=== PATIENT | female | born 1960 | race Two or more races ===

== ENCOUNTER → 2016-04-10 | Outpatient (CLI) | payer BC ==
[2016-04-10 11:22] LABS: CHOLESTEROL 233.72 mg/dL (0-200); Direct HDL 68 mg/dL (>40); TRIGLYCERIDES 97 mg/dL (<150)
[2016-04-10 11:35] LABS: DIRECT LDL 123 mg/dL (<100)
== END ==
LOC: OD 09:26
PROVIDERS: ATTEND Family Medicine Geriatric Medicine
DX: E78.5 Hyperlipidemia, unspecified (principal)
CPT/HCPCS: 36415; 80061

== ENCOUNTER → 2017-05-25 | Outpatient (CLI) | payer BC ==
[2017-05-25 10:59] LABS: ABSOLUTE EOSINOPHILS # (AUTO) 0.2 10^3/uL (0.0-0.6); ABSOLUTE LYMPHOCYTES (AUTO) 1.5 10^3/uL (0.5-4.7); ABSOLUTE MONOCYTES (AUTO) 0.4 10^3/uL (0.1-1.4); ABSOLUTE NEUT (AUTO) 2.2 10^3/uL (1.7-8.2); BASOPHILS % (AUTO) 0.7 % (0-2); EOSINOPHILS % (AUTO) 4.5 % (0-6); HEMATOCRIT 41.5 % (36.0-47.0); HEMOGLOBIN 13.7 g/dL (12.0-15.5); LYMPHOCYTES % (AUTO) 34.2 % (13-45); MEAN CORPUSCULAR HEMOGLOBIN 28.2 pg (27.0-33.4); MEAN CORPUSCULAR HGB CONC 33.1 g/dL (32.0-36.0); MEAN CORPUSCULAR VOLUME 85 fl (80-97); MONOCYTES % (AUTO) 9.6 % (3-13); PLATELET COUNT 234 10^3/uL (150-450); RED BLOOD COUNT 4.86 10^6/uL (3.72-5.28); RED CELL DISTRIBUTION WIDTH 13.1 % (11.5-14.0); TOTAL CELLS COUNTED % (AUTO) 100 %; WHITE BLOOD COUNT 4.3 10^3/uL (4.0-10.5)
[2017-05-25 11:22] LABS: ALANINE AMINOTRANSFERASE 29 U/L (9-52); ALBUMIN 4.6 g/dL (3.5-5.0); ALKALINE PHOSPHATASE 81 U/L (38-126); ANION GAP 12 (5-19); ASPARTATE AMINO TRANSFERASE 27 U/L (14-36); BILIRUBIN,DIRECT 0.3 mg/dL (0.0-0.4); BILIRUBIN,TOTAL 0.5 mg/dL (0.2-1.3); BLOOD UREA NITROGEN 26 mg/dL (7-20); CALCIUM 9.8 mg/dL (8.4-10.2); CARBON DIOXIDE 31 mmol/L (22-30); CHLORIDE 100 mmol/L (98-107); CHOLESTEROL 236.71 mg/dL (0-200); GLUCOSE 115 mg/dL (75-110); POTASSIUM 4.5 mmol/L (3.6-5.0); SODIUM 143.2 mmol/L (137-145); TOTAL PROTEIN 7.4 g/dL (6.3-8.2); TRIGLYCERIDES 82 mg/dL (<150)
[2017-05-25 11:33] LABS: DIRECT LDL 131 mg/dL (<100)
== END ==
LOC: OD 10:09
PROVIDERS: ATTEND Family Medicine Geriatric Medicine
DX: E78.5 Hyperlipidemia, unspecified (principal); I10 Essential (primary) hypertension; I25.10 Atherosclerotic heart disease of native coronary artery without angina pectoris; E66.9 Obesity, unspecified; E55.9 Vitamin D deficiency, unspecified; Z68.36 Body mass index [BMI] 36.0-36.9, adult; Z79.899 Other long term (current) drug therapy
CPT/HCPCS: 36415; 80053; 80061; 82652; 84443; 85025

== ENCOUNTER → 2017-05-30 | Outpatient (CLI) | payer SELFPAY | LOC: OD 09:06 | PROVIDERS: ATTEND Family Medicine Geriatric Medicine | DX: R73.9 Hyperglycemia, unspecified (principal) | CPT/HCPCS: 36415; 82947; 82950 ==

== ENCOUNTER 2017-07-04 21:55 | Emergency (ER) | payer SELFPAY ==
[2017-07-04 22:01] VITALS: BP 145/91
[2017-07-05] MEDS ORDERED: CETIRIZINE 10 MG TABLET PO ONE (02:04)
[2017-07-05] MEDS ORDERED: POLYMYXIN B SULFATE/TMP OPH SOLN (10 ML/ER DISP) OU PRN (02:04)
--- NOTE | 2017-07-05 03:01 | ER Document Report ---
ED General - General Chief Complaint: Eye Problem Stated Complaint: EYE ISSUE Time Seen by Provider: 07/05/17 01:14 TRAVEL OUTSIDE OF THE [place] IN LAST 30 DAYS: No - HPI Patient complains to provider of: Bilateral eye redness and itching Notes: Patient coming in for 24 hour history of bilateral eye redness and itching. N no recent sick contacts no recent travel the patient does not wear glasses or contacts. No fevers no chills states denies watering does feel like there is something in the right eye. Patient otherwise resting comfortably denies any trauma denies taking any medication for her symptoms - Related Data Allergies/Adverse Reactions: No Known Allergies Allergy (Verified 08/10/13 17:06) Past Medical History - Social History Smoking Status: Unknown if Ever Smoked Family History: CAD Patient has suicidal ideation: No Patient has homicidal ideation: No - Past Medical History Cardiac Medical History: Reports: Hx Hypercholesterolemia, Hx Hypertension Pulmonary Medical History: Denies: Hx Tuberculosis Renal/ Medical History: Denies: Hx Peritoneal Dialysis Past Surgical History: Denies: Hx Pacemaker - Immunizations Hx Diphtheria, Pertussis, Tetanus Vaccination: Yes Review of Systems - Review of Systems Constitutional: No symptoms reported EENT: Eye discharge, Tearing Cardiovascular: No symptoms reported Respiratory: No symptoms reported Gastrointestinal: No symptoms reported Genitourinary: No symptoms reported Female Genitourinary: No symptoms reported Musculoskeletal: No symptoms reported Skin: No symptoms reported Hematologic/Lymphatic: No symptoms reported Neurological/Psychological: No symptoms reported -: Yes All other systems reviewed and negative Physical Exam - Vital signs Vitals: Temp Pulse Resp BP Pulse Ox 98.1 F 82 18 145/91 H 96 07/04/17 22:00 07/04/17 22:00 07/04/17 22:00 07/04/17 22:00 07/04/17 22:00 Interpretation: Normal - General General appearance: Appears well, Alert - HEENT Head: Normocephalic, Atraumatic Eyes: Normal Conjunctiva: Injected, Purulent discharge - Scant amount bilaterally Cornea: Normal Extraocular movements intact: Yes Eyelashes: Normal Pupils: PERRL - Patient has bilateral pterygiums Anterior chamber: Normal - Respiratory Respiratory status: No respiratory distress Chest status: Nontender Breath sounds: Normal Chest palpation: Normal - Cardiovascular Rhythm: Regular Heart sounds: Normal auscultation Murmur: No - Abdominal Inspection: Normal Distension: No distension Bowel sounds: Normal Tenderness: Nontender Organomegaly: No organomegaly - Back Back: Normal, Nontender - Extremities General upper extremity: Normal inspection, Nontender, Normal color, Normal ROM , Normal temperature General lower extremity: Normal inspection, Nontender, Normal color, Normal ROM , Normal temperature, Normal weight bearing. No: Joni's sign - Neurological Neuro grossly intact: Yes Cognition: Normal Orientation: AAOx4 [place] Coma Scale Eye Opening: Spontaneous [place] Coma Scale Verbal: Oriented [place] Coma Scale Motor: Obeys Commands [place] Coma Scale Total: 15 Speech: Normal Motor strength normal: LUE, RUE, LLE, RLE Sensory: Normal - Psychological Associated symptoms: Normal affect, Normal mood - Skin Skin Temperature: Warm Skin Moisture: Dry Skin Color: Normal Course - Re-evaluation Re-evalutation: 07/05/17 04:49 Evaluation consistent with conjunctivitis. Patient was encouraged to use the drops provided start the patient on antihistamines. Patient was discharged home - Vital Signs Vital signs: Temp Pulse Resp BP Pulse Ox 98.1 F 82 18 145/91 H 96 07/04/17 22:00 07/04/17 22:00 07/04/17 22:00 07/04/17 22:00 07/04/17 22:00 Discharge - Discharge Clinical Impression: Conjunctivitis Qualifiers: Conjunctivitis type: unspecified Laterality: bilateral Qualified Code(s): H10.9 - Unspecified conjunctivitis Instructions: Eyedrop Use ([facility]), Conjunctivitis, Allergic, Conjunctivitis ([facility]) Additional Instructions: Take medication as prescribed. Also recommend taking antihistamine medication he may use Zyrtec as prescribed. Return to ER symptoms worsen. Please use the drops of a gave you here in ER 1-2 drops in each eye 3 times a day for the next 7 days. Prescriptions: Cetirizine HCl [Zyrtec] 10 mg PO DAILY #30 tablet Referrals: TEDDY HARLEY MD [Primary Care Provider] - Follow up as needed
== END 2017-07-05 02:53 | disposition home or self-care (01) ==
LOC: ER 21:55
DX: H10.9 Unspecified conjunctivitis (principal); H57.8 Other specified disorders of eye and adnexa; E78.00 Pure hypercholesterolemia, unspecified; I10 Essential (primary) hypertension
CPT/HCPCS: 99283; J3490

== ENCOUNTER 2018-01-19 09:25 | Emergency (ER) | payer SELFPAY ==
[2018-01-19] MEDS ORDERED: HYDROCODONE/ACETAMINOPHEN 5-325 MG TABLET PO ONE (09:53)
--- NOTE | 2018-01-19 09:55 | ER Document Report ---
ED Medical Screen (RME) - General Chief Complaint: Flank Pain Stated Complaint: UPPER ABDOMINAL PAIN Time Seen by Provider: 01/19/18 09:53 Mode of Arrival: Ambulatory Information source: Patient, Relative TRAVEL OUTSIDE OF THE [place] IN LAST 30 DAYS: No - HPI Patient complains to provider of: Abd pain Onset: Just prior to arrival - pt with acute onset of L-sided abd pain earlier this am with radiation to L flank - Related Data Allergies/Adverse Reactions: No Known Allergies Allergy (Verified 01/19/18 09:30) Past Medical History - Past Medical History Cardiac Medical History: Reports: Hx Hypercholesterolemia, Hx Hypertension Pulmonary Medical History: Denies: Hx Tuberculosis Renal/ Medical History: Denies: Hx Peritoneal Dialysis Past Surgical History: Denies: Hx Pacemaker - Immunizations Hx Diphtheria, Pertussis, Tetanus Vaccination: Yes Physical Exam - Vital signs Vitals: Temp Pulse Resp BP Pulse Ox 98.4 F 82 20 152/93 H 99 01/19/18 09:28 01/19/18 09:28 01/19/18 09:28 01/19/18 09:28 01/19/18 09:28 Course - Vital Signs Vital signs: Temp Pulse Resp BP Pulse Ox 98.4 F 82 20 152/93 H 99 01/19/18 09:28 01/19/18 09:28 01/19/18 09:28 01/19/18 09:28 01/19/18 09:28 Doctor's Discharge - Discharge Referrals: TEDDY HRALEY MD [Primary Care Provider] - Follow up as needed
--- NOTE | 2018-01-19 10:54 | RADIOLOGY REPORT (SQ) ---
EXAM DESCRIPTION: ACUTE ABDOMEN SERIES COMPLETED DATE/TIME: 01/19/2018 10:43 am REASON FOR STUDY: abd pain COMPARISON: None. NUMBER OF VIEWS: Three views. TECHNIQUE: Frontal chest, supine abdomen and upright/decubitus abdomen radiographic images acquired. LIMITATIONS: None. FINDINGS: CHEST: Lungs clear of infiltrates. FREE AIR: None. No abnormal gas collections. BOWEL GAS PATTERN: Abundant fecal material from the cecum to the rectum. No obstruction. CALCIFICATIONS: No suspicious calcifications. HARDWARE: None in the abdomen. SOFT TISSUES: No gross mass or suggestion of organomegaly. BONES: No acute fracture. No worrisome bone lesions. OTHER: No other significant finding. IMPRESSION: Fecal retention. TECHNICAL DOCUMENTATION: JOB ID: [id number] [employer]- All Rights Reserved Reading location - IP/workstation name: [email or web address]
[2018-01-19 11:13] LABS: APPEARANCE,URINE CLOUDY; BILIRUBIN,URINE NEGATIVE (NEGATIVE); COLOR,URINE AMBER; GLUCOSE, URINE NEGATIVE (NEGATIVE); KETONES,URINE NEGATIVE (NEGATIVE); LEUKOCYTE ESTERASE,URINE LARGE (NEGATIVE); NITRITE,URINE NEGATIVE (NEGATIVE); PROTEIN,URINE NEGATIVE (NEGATIVE); URINE SPECIFIC GRAVITY 1.023; UROBILINOGEN,URINE NEGATIVE mg/dL (<2.0)
[2018-01-19 11:27] LABS: ABSOLUTE EOSINOPHILS # (AUTO) 0.2 10^3/uL (0.0-0.6); ABSOLUTE LYMPHOCYTES (AUTO) 1.5 10^3/uL (0.5-4.7); ABSOLUTE MONOCYTES (AUTO) 0.4 10^3/uL (0.1-1.4); ABSOLUTE NEUT (AUTO) 2.7 10^3/uL (1.7-8.2); BASOPHILS % (AUTO) 0.6 % (0-2); EOSINOPHILS % (AUTO) 3.1 % (0-6); HEMATOCRIT 38.9 % (36.0-47.0); HEMOGLOBIN 13.1 g/dL (12.0-15.5); LYMPHOCYTES % (AUTO) 31.5 % (13-45); MEAN CORPUSCULAR HEMOGLOBIN 28.7 pg (27.0-33.4); MEAN CORPUSCULAR HGB CONC 33.6 g/dL (32.0-36.0); MEAN CORPUSCULAR VOLUME 85 fl (80-97); MONOCYTES % (AUTO) 9.2 % (3-13); PLATELET COUNT 245 10^3/uL (150-450); RED BLOOD COUNT 4.57 10^6/uL (3.72-5.28); RED CELL DISTRIBUTION WIDTH 13.1 % (11.5-14.0); SEGMENTED NEUTROPHILS % (AUTO) 55.6 % (42-78); TOTAL CELLS COUNTED % (AUTO) 100 %; WHITE BLOOD COUNT 4.8 10^3/uL (4.0-10.5)
[2018-01-19 11:34] LABS: ALANINE AMINOTRANSFERASE 20 U/L (9-52); ALBUMIN 4.5 g/dL (3.5-5.0); ALKALINE PHOSPHATASE 101 U/L (38-126); ANION GAP 11 (5-19); ASPARTATE AMINO TRANSFERASE 26 U/L (14-36); BILIRUBIN,DIRECT 0.4 mg/dL (0.0-0.4); BILIRUBIN,TOTAL 0.5 mg/dL (0.2-1.3); BLOOD UREA NITROGEN 25 mg/dL (7-20); CALCIUM 9.6 mg/dL (8.4-10.2); CARBON DIOXIDE 28 mmol/L (22-30); CHLORIDE 102 mmol/L (98-107); GLUCOSE 122 mg/dL (75-110); POTASSIUM 4.3 mmol/L (3.6-5.0); SODIUM 141.1 mmol/L (137-145); TOTAL PROTEIN 7.6 g/dL (6.3-8.2)
[2018-01-19] MEDS ORDERED: CEFTRIAXONE RTU 1 GM/D5W 50 ML IV ONE (11:35)
--- NOTE | 2018-01-19 11:40 | ER Document Report ---
ED GI/ - General Chief Complaint: Flank Pain Stated Complaint: UPPER ABDOMINAL PAIN Time Seen by Provider: 01/19/18 09:53 Mode of Arrival: Ambulatory Information source: Patient Notes: Patient is a 57-year-old female with past medical history as recorded who presents today with the onset around 8 AM of some left upper abdominal discomfort radiating to her left back. She denies nausea, vomiting, fevers, diarrhea, or dysuria. She denies any radiation to her lower pelvis. Patient on review of systems also states a mild radiation to the anterior chest. Patient recently has had a upper respiratory tract infection with runny nose, congestion, and cough. She denies any phlegm. Patient denies any calf pain, leg swelling, recent trips or travel. Patient supposedly a few years ago had an episode of hematuria and was treated with antibiotics with resolution of the hematuria according to the family with Dr. Damon the primary care physician. TRAVEL OUTSIDE OF THE [place] IN LAST 30 DAYS: No - HPI Patient complains to provider of: Other - See above Onset: Other - See above Timing/Duration: Gradual Quality of pain: Achy Severity at maximum: Moderate Severity in ED: Mild Pain Level: Denies Location: Other - See above Associated symptoms: Other - See above Exacerbated by: Denies Relieved by: Denies Similar symptoms previously: Yes Recently seen / treated by doctor: No - Related Data Allergies/Adverse Reactions: No Known Allergies Allergy (Verified 01/19/18 09:30) Past Medical History - General Information source: Patient, Relative - Social History Smoking Status: Never Smoker Chew tobacco use (# tins/day): No Frequency of alcohol use: None Drug Abuse: None Family History: Reviewed & Not Pertinent, CAD Patient has suicidal ideation: No Patient has homicidal ideation: No - Past Medical History Cardiac Medical History: Reports: Hx Hypercholesterolemia, Hx Hypertension Pulmonary Medical History: Denies: Hx Tuberculosis Renal/ Medical History: Denies: Hx Peritoneal Dialysis Past Surgical History: Denies: Hx Pacemaker - Immunizations Hx Diphtheria, Pertussis, Tetanus Vaccination: Yes Review of Systems - Review of Systems Constitutional: denies: Fever EENT: denies: Eye discharge, Nose discharge Cardiovascular: denies: Palpitations, Dizziness, Lightheaded Respiratory: denies: Short of breath Gastrointestinal: denies: Vomiting Genitourinary: denies: Dysuria Musculoskeletal: denies: Leg swelling Skin: Other - no hives. denies: Rash Neurological/Psychological: Other - no slurred speech -: Yes All other systems reviewed and negative Physical Exam - Vital signs Vitals: Temp Pulse Resp BP Pulse Ox 98.4 F 82 20 152/93 H 99 01/19/18 09:28 01/19/18 09:28 01/19/18 09:28 01/19/18 09:28 01/19/18 09:28 Notes: Reviewed vital signs and nursing note as charted by RN. CONSTITUTIONAL: Alert and oriented and responds appropriately to questions. Well -appearing; well-nourished HEAD: Normocephalic; atraumatic EYES: Sclerae non-icteric ENT: Normal nose; no rhinorrhea; moist mucous membranes; pharynx without lesions noted NECK: Supple without meningismus; non-tender; no cervical lymphadenopathy, no masses CARD: Regular rate and rhythm; no murmurs; symmetric distal pulses RESP: Normal chest excursion without splinting or tachypnea; breath sounds clear and equal bilaterally; no wheezes, no rhonchi, no rales ABD/GI: Normal bowel sounds; non-distended; soft, minimally tender the left upper quadrant with no palpable masses, rebound or guarding. No bruising to the abdomen BACK: The back appears normal and is non-tender to palpation. Minimal left CVA tenderness with no swelling or erythema EXT: Normal ROM in all joints; non-tender to palpation; no edema SKIN: No acute lesions noted NEURO: CN 2-12 intact; 5/5 bilateral upper and lower extremity strength with sensation intact to light touch PSYCH: The patient's mood and manner are appropriate. Grooming and personal hygiene are appropriate. Course - Re-evaluation Re-evalutation: 01/19/18 11:39 Given the above history and physical examination, I will obtain basic labs, liver panel and lipase, renal colic CT scan, urine analysis, and reassess. Given that the patient states some anterior chest discomfort with radiation from the left abdominal region, I will add on a troponin and an EKG with an x- ray of the chest. I have a low pretest probability for ACS, dissection, or PE. 01/19/18 12:19 Urine analysis and other laboratory results as recorded. Rocephin has been given. Urine culture has been sent. 12/15/18 13:19 CT scan of the abdomen and pelvis renal colic protocol as recorded. Patient has a small adenoma and a small right 2 cm adnexal mass. Patient has no tenderness to the right side of the abdomen. I have discussed these findings with the patient and the family. Patient's troponin as recorded. 01/19/18 13:36 EKG shows a heart rate of 74, left axis deviation, no obvious ST elevation or depression, inverted T waves in lead V3. Old EKG from 2016 shows no obvious appreciable change. Patient denies any chest pain at this time. Urine analysis as recorded. Patient did have some mild left CVA tenderness and left abdominal tenderness. I will start the patient on a course of antibiotics with strict return precautions and follow-up with the primary care provider. Urine culture has been sent. - Vital Signs Vital signs: Temp Pulse Resp BP Pulse Ox 98.4 F 82 20 152/93 H 99 01/19/18 09:28 01/19/18 09:28 01/19/18 09:28 01/19/18 09:28 01/19/18 09:28 - Laboratory Result Diagrams: 01/19/18 10:38 01/19/18 10:38 Laboratory results interpreted by me: 01/19/18 01/19/18 10:38 10:38 BUN 25 H Glucose 122 H Urine Blood MODERATE H Ur Leukocyte Esterase LARGE H Discharge - Discharge Clinical Impression: Left sided abdominal pain, Left flank pain, Adenoma of left adrenal gland, Pelvic mass in female Urinary tract infection Qualifiers: Urinary tract infection type: site unspecified Hematuria presence: with hematuria Qualified Code(s): N39.0 - Urinary tract infection, site not specified ; R31.9 - Hematuria, unspecified; R31.9 - Hematuria, unspecified Condition: Good Disposition: HOME, SELF-CARE Additional Instructions: Come back immediately for any increased pain, change in location or quality of pain, fevers, vomiting, return of chest discomfort, any shortness of breath, or any other acute problems. Please take the antibiotics as prescribed. Please make sure that she follow-up with your primary care physician for reassessment of the urine analysis and the urine culture. Please also follow-up on the other incidental findings that we have discussed. Prescriptions: Cefdinir [Omnicef 300 mg Capsule] 1 cap PO BID 10 Days #20 capsule Referrals: TEDDY HARLYE MD [Primary Care Provider] - Follow up as needed
--- NOTE | 2018-01-19 13:14 | RADIOLOGY REPORT (SQ) ---
EXAM DESCRIPTION: CT LTD RENAL STONE PROTOCOL ON COMPLETED DATE/TIME: 01/19/2018 12:57 pm REASON FOR STUDY: flank pain . Left upper quadrant pain. COMPARISON: Abdominal series 01/19/2018. TECHNIQUE: CT scan of the abdomen and pelvis performed without intravenous or oral contrast. Images reviewed with lung, soft tissue, and bone windows. Reconstructed coronal and sagittal MPR images revi ewed. All images stored on PACS. All CT scanners at this facility use dose modulation, iterative reconstruction, and/or weight based d osing when appropriate to reduce radiation dose to as low as reasonably achievable (ALARA). [facility]: Dose Right [facility]: CareDose [facility]: Dose Right [facility]: Teradose 4D [facility]: Smart ADP RADIATION DOSE: CT Rad equipment meets quality standard of care and radiation dose reduction techniq ues were employed. CTDIvol: 23.7 mGy. DLP: 1377 mGy-cm.mGy. LIMITATIONS: None. FINDINGS: Stone CT LOWER CHEST: No consolidation or pleural effusion. NON-CONTRASTED LIVER, SPLEEN, ADRENALS: Evaluation limited by lack of IV contrast. There is a 1.3 cm fat containing nodule at the left adrenal gland, probably representing a small adenoma. Otherwise, no identified significant masses. PANCREAS: No peripancreatic inflammatory changes. GALLBLADDER: No identified stones by CT criteria. No inflammatory changes to suggest cholecystitis. RIGHT KIDNEY AND URETER: Assessment for masses limited by lack of IV contrast. No significant calci fications. No hydronephrosis or hydroureter. LEFT KIDNEY AND URETER: Assessment for masses limited by lack of IV contrast. No significant calcif ications. No hydronephrosis or hydroureter. AORTA AND RETROPERITONEUM: No abdominal aortic aneurysm. No retroperitoneal masses or hemorrhage. BOWEL AND PERITONEAL CAVITY: No dilated bowel loops or inflammatory changes. No free fluid. APPENDIX: Normal. PELVIS, BLADDER, AND ABDOMINAL WALL:The uterus is present. There is a 2.0 cm cystic lesion at the [facility] adnexa. No free fluid. Bladder distended. There is a small fat containing umbilical hernia. BONES: There is mild anterolisthesis of L4 on L5. There is facet arthropathy at L4-L5 with severe sp inal canal stenosis at L4-L5. IMPRESSION: 1. No obstructing ureteral calculus or hydronephrosis. No acute findings on unenhanced CT. 2. Small left adrenal adenoma. 3. 2.0 cm cystic lesion at the right adnexa. This can be better characterized by pelvic ultrasound. 4. Mild anterolisthesis of L4 on L5. Severe spinal canal stenosis at L4-L5. COMMENT: Quality ID # [id number]: Final reports with documentation of one or more dose reduction techniques (e.g., Automated exposure control, adjustment of the mA and/or kV according to patient size, use of iterative reconstruction technique) TECHNICAL DOCUMENTATION: JOB ID: [id number]-[email or web address] 2010 [employer]- All Rights Reserved Reading location - IP/workstation name: [email or web address]
[2018-01-19 14:17] VITALS: BP 133/76
--- NOTE | 2018-01-21 00:41 | EKG REPORT ---
SEVERITY:- BORDERLINE ECG - SINUS RHYTHM LEFT AXIS DEVIATION BORDERLINE T ABNORMALITIES, DIFFUSE LEADS : Confirmed by: Krupa George MD 21-Jan-2018 00:40:09
== END 2018-01-19 14:17 | disposition home or self-care (01) ==
LOC: ER 09:25
DX: N39.0 Urinary tract infection, site not specified (principal); D35.02 Benign neoplasm of left adrenal gland; R19.00 Intra-abdominal and pelvic swelling, mass and lump, unspecified site; R10.12 Left upper quadrant pain; M54.5 Low back pain; I10 Essential (primary) hypertension
CPT/HCPCS: 93005; 99285; 96365; 36415; 87086; 83690; 85025; 80053; 81001; 84484; 74022; 76380; 93010; J0696

== ENCOUNTER → 2018-08-13 | Outpatient (CLI) | payer SELFPAY ==
[2018-08-13 11:13] LABS: ALANINE AMINOTRANSFERASE 25 U/L (9-52); ALBUMIN 4.7 g/dL (3.5-5.0); ALKALINE PHOSPHATASE 93 U/L (38-126); ANION GAP 9 (5-19); ASPARTATE AMINO TRANSFERASE 30 U/L (14-36); BILIRUBIN,DIRECT 0.3 mg/dL (0.0-0.4); BILIRUBIN,TOTAL 0.6 mg/dL (0.2-1.3); BLOOD UREA NITROGEN 17 mg/dL (7-20); CALCIUM 9.8 mg/dL (8.4-10.2); CARBON DIOXIDE 31 mmol/L (22-30); CHLORIDE 100 mmol/L (98-107); CHOLESTEROL 174.61 mg/dL (0-200); GLUCOSE 114 mg/dL (75-110); POTASSIUM 4.5 mmol/L (3.6-5.0); SODIUM 139.8 mmol/L (137-145); TOTAL PROTEIN 7.9 g/dL (6.3-8.2); TRIGLYCERIDES 106 mg/dL (<150)
[2018-08-13 11:25] LABS: DIRECT LDL 87 mg/dL (<100)
== END ==
LOC: OD 10:02
PROVIDERS: ATTEND Internal Medicine
DX: E78.5 Hyperlipidemia, unspecified (principal); E03.9 Hypothyroidism, unspecified; R94.5 Abnormal results of liver function studies; N19 Unspecified kidney failure; E11.9 Type 2 diabetes mellitus without complications
CPT/HCPCS: 36415; 80048; 80061; 80076; 83036; 84443

== ENCOUNTER 2018-12-17 11:05 | Emergency (ER) | payer SELFPAY ==
[2018-12-17] MEDS ORDERED: ASPIRIN 81 MG TABLET, CHEWABLE PO ONE (11:30)
--- NOTE | 2018-12-17 11:32 | ER Document Report ---
ED Medical Screen (RME) - General Chief Complaint: Chest Pain Stated Complaint: DIZZY/CHEST PAIN Time Seen by Provider: 12/17/18 11:25 Primary Care Provider: KYLE DICKEY MD [Primary Care Provider] - Follow up as needed TRAVEL OUTSIDE OF THE [place] IN LAST 30 DAYS: No - HPI Notes: 12/17/18 11:31 58-year-old female to the emergency department with complaints of midsternal chest pain that started about 1020 this morning and lasted about 20 minutes. She states that she was cleaning when the chest pain started. She states that she had associated tingling in her legs as well as diaphoresis and nausea. She did not vomit. She never had a heart attack. She does have high blood pressure, hyperlipidemia, diabetes. Daughter who is with her denies any family history of heart disease. She has not recently been traveling. She does not have any swollen legs. She states that her pain is much better now. She has not taken aspirin this morning. I performed a brief medical screening exam on this patient and determined he needs further management and evaluation by means at ER provider. I placed initial orders to help expedite in his treatment plan today to include lab work and medications. - Related Data Allergies/Adverse Reactions: No Known Allergies Allergy (Verified 01/19/18 09:30) Past Medical History - Past Medical History Cardiac Medical History: Reports: Hx Hypercholesterolemia, Hx Hypertension Pulmonary Medical History: Denies: Hx Tuberculosis Renal/ Medical History: Denies: Hx Peritoneal Dialysis Past Surgical History: Denies: Hx Pacemaker - Immunizations Hx Diphtheria, Pertussis, Tetanus Vaccination: Yes Physical Exam - Vital signs Vitals: Temp Pulse Resp BP Pulse Ox 98.2 F 72 18 165/90 H 98 12/17/18 11:12 12/17/18 11:12 12/17/18 11:12 12/17/18 11:12 12/17/18 11:12 Course - Vital Signs Vital signs: Temp Pulse Resp BP Pulse Ox 98.2 F 72 18 165/90 H 98 12/17/18 11:12 12/17/18 11:12 12/17/18 11:12 12/17/18 11:12 12/17/18 11:12 Doctor's Discharge - Discharge Referrals: KYLE DICKEY MD [Primary Care Provider] - Follow up as needed
--- NOTE | 2018-12-17 12:12 | RADIOLOGY REPORT (SQ) ---
EXAM DESCRIPTION: CHEST 2 VIEWS COMPLETED DATE/TIME: 12/17/2018 11:58 am REASON FOR STUDY: chest pain COMPARISON: 06/07/2015 EXAM PARAMETERS: NUMBER OF VIEWS: two views TECHNIQUE: Digital Frontal and Lateral radiographic views of the chest acquired. RADIATION DOSE: NA LIMITATIONS: none FINDINGS: LUNGS AND PLEURA: No opacities, masses or pneumothorax. No pleural effusion. MEDIASTINUM AND HILAR STRUCTURES: No masses or contour abnormalities. HEART AND VASCULAR STRUCTURES: Heart normal size. No evidence for failure. BONES: No acute findings. HARDWARE: None in the chest. OTHER: No other significant finding. IMPRESSION: NO ACUTE RADIOGRAPHIC FINDING IN THE CHEST. TECHNICAL DOCUMENTATION: JOB ID: [id number] [employer]- All Rights Reserved Reading location - IP/workstation name: [email or web address]
[2018-12-17 13:05] LABS: ABSOLUTE EOSINOPHILS # (AUTO) 0.1 10^3/uL (0.0-0.6); ABSOLUTE LYMPHOCYTES (AUTO) 1.5 10^3/uL (0.5-4.7); ABSOLUTE MONOCYTES (AUTO) 0.5 10^3/uL (0.1-1.4); ABSOLUTE NEUT (AUTO) 5.1 10^3/uL (1.7-8.2); BASOPHILS % (AUTO) 0.5 % (0-2); EOSINOPHILS % (AUTO) 1.4 % (0-6); HEMATOCRIT 39.9 % (36.0-47.0); HEMOGLOBIN 13.4 g/dL (12.0-15.5); LYMPHOCYTES % (AUTO) 21.1 % (13-45); MEAN CORPUSCULAR HEMOGLOBIN 28.7 pg (27.0-33.4); MEAN CORPUSCULAR HGB CONC 33.6 g/dL (32.0-36.0); MEAN CORPUSCULAR VOLUME 86 fl (80-97); MONOCYTES % (AUTO) 7.3 % (3-13); PLATELET COUNT 254 10^3/uL (150-450); RED BLOOD COUNT 4.67 10^6/uL (3.72-5.28); RED CELL DISTRIBUTION WIDTH 13.5 % (11.5-14.0); SEGMENTED NEUTROPHILS % (AUTO) 69.7 % (42-78); TOTAL CELLS COUNTED % (AUTO) 100 %; WHITE BLOOD COUNT 7.3 10^3/uL (4.0-10.5)
[2018-12-17 13:13] LABS: INTERNATIONAL RATION (INR) 0.99; PROTHROMBIN TIME 13.1 SEC (11.4-15.4)
[2018-12-17 13:22] LABS: PARTIAL THROMBOPLASTIN TIME 34.1 SEC (23.5-35.8)
[2018-12-17 13:26] LABS: ALBUMIN 4.7 g/dL (3.5-5.0); ALKALINE PHOSPHATASE 92 U/L (38-126); ANION GAP 12 (5-19); ASPARTATE AMINO TRANSFERASE 26 U/L (14-36); BILIRUBIN,DIRECT 0.2 mg/dL (0.0-0.4); BILIRUBIN,TOTAL 0.5 mg/dL (0.2-1.3); BLOOD UREA NITROGEN 23 mg/dL (7-20); CARBON DIOXIDE 31 mmol/L (22-30); CHLORIDE 99 mmol/L (98-107); GLUCOSE 105 mg/dL (75-110); POTASSIUM 4.5 mmol/L (3.6-5.0); TOTAL PROTEIN 8.3 g/dL (6.3-8.2)
[2018-12-17] MEDS ORDERED: IPRATROPIUM/ALBUTEROL 0.5-2.5 MG/3 ML AMPUL NEB ONE (14:38)
[2018-12-17] MEDS ORDERED: METHYLPREDNISOLONE INJ 40 MG/1 ML SDV IV ONE (14:38)
--- NOTE | 2018-12-17 15:17 | ER Document Report ---
ED General - General Chief Complaint: Chest Pain Stated Complaint: DIZZY/CHEST PAIN Time Seen by Provider: 12/17/18 11:25 Primary Care Provider: KYLE DICKEY MD [ACTIVE STAFF] - Follow up as needed SHIEREN MORROW MD [ACTIVE STAFF] - Follow up as needed TRAVEL OUTSIDE OF THE [place] IN LAST 30 DAYS: No - HPI Onset: This afternoon Onset/Duration: Gradual Quality of pain: No pain Severity: Moderate Pain Level: 2 Context: 58 year old female arrives with complaints of cough and sob and felt bad while cleaning at home. She was reportedly cleaning with a bleach solution and then experienced chest discomfort some nonproductive cough and weakness. Some headche since this. May have felt a bit nauseate and sweaty with this. No recent illness. She has h/o htn, "pre diabetes" , hld and is a nonsmoker. She is yakut speaking and her daughter is here and translates for her. No sick contacts. Exacerbated by: Denies Similar symptoms previously: No Recently seen / treated by doctor: No - Related Data Allergies/Adverse Reactions: No Known Allergies Allergy (Verified 01/19/18 09:30) Past Medical History - Social History Smoking Status: Never Smoker Chew tobacco use (# tins/day): No Frequency of alcohol use: None Drug Abuse: None Family History: Reviewed & Not Pertinent, CAD Patient has suicidal ideation: No Patient has homicidal ideation: No - Past Medical History Cardiac Medical History: Reports: Hx Hypercholesterolemia, Hx Hypertension Pulmonary Medical History: Denies: Hx Tuberculosis Renal/ Medical History: Denies: Hx Peritoneal Dialysis Past Surgical History: Denies: Hx Pacemaker - Immunizations Hx Diphtheria, Pertussis, Tetanus Vaccination: Yes Review of Systems - Review of Systems Constitutional: No symptoms reported EENT: No symptoms reported Cardiovascular: See HPI, Chest pain Respiratory: See HPI, Cough Gastrointestinal: No symptoms reported Genitourinary: No symptoms reported Female Genitourinary: No symptoms reported Musculoskeletal: No symptoms reported Skin: No symptoms reported Hematologic/Lymphatic: No symptoms reported Neurological/Psychological: No symptoms reported Physical Exam - Vital signs Vitals: Temp Pulse Resp BP Pulse Ox 98.2 F 72 18 165/90 H 98 12/17/18 11:12 12/17/18 11:12 12/17/18 11:12 12/17/18 11:12 12/17/18 11:12 Interpretation: Normal - General General appearance: Appears well, Alert - HEENT Head: Normocephalic, Atraumatic Eyes: Normal Pupils: PERRL - Respiratory Respiratory status: No respiratory distress Chest status: Nontender Breath sounds: Decreased air movement, Wheezing Chest palpation: Normal - Cardiovascular Rhythm: Regular Heart sounds: Normal auscultation Murmur: No - Abdominal Inspection: Normal Distension: No distension Bowel sounds: Normal Tenderness: Nontender Organomegaly: No organomegaly - Back Back: Normal, Nontender - Extremities General upper extremity: Normal inspection, Nontender, Normal color, Normal ROM, Normal temperature General lower extremity: Normal inspection, Nontender, Normal color, Normal ROM, Normal temperature, Normal weight bearing. No: Joni's sign - Neurological Neuro grossly intact: Yes Cognition: Normal Orientation: AAOx4 [place] Coma Scale Eye Opening: Spontaneous [place] Coma Scale Verbal: Oriented [place] Coma Scale Motor: Obeys Commands [place] Coma Scale Total: 15 Speech: Normal Motor strength normal: LUE, RUE, LLE, RLE Sensory: Normal - Psychological Associated symptoms: Normal affect, Normal mood - Skin Skin Temperature: Warm Skin Moisture: Dry Skin Color: Normal Course - Re-evaluation Re-evalutation: 12/17/18 15:17 MDM Faint exp wheeze here clears after neb. She is well here. 2 troponins are checked. She is certainly nontoxic here. The history suggests a possible inhalation injury/ reaction to the clorox. Due to an abunance of caution she underwent a cardiac evaluation here and I feel follow up is reasonable with this pt. Historically it seems the clorox exposure played a role in this more than anything. - Vital Signs Vital signs: Temp Pulse Resp BP Pulse Ox 98.2 F 72 21 H 147/99 H 100 12/17/18 11:12 12/17/18 11:12 12/17/18 15:00 12/17/18 14:11 12/17/18 15:00 - Laboratory Result Diagrams: 12/17/18 12:40 12/17/18 12:40 Laboratory results interpreted by me: 12/17/18 12:40 Carbon Dioxide 31 H BUN 23 H Total Protein 8.3 H - Diagnostic Test Radiology reviewed: Image reviewed, Reports reviewed Discharge - Discharge Clinical Impression: Cough Chest pain Qualifiers: Chest pain type: unspecified Qualified Code(s): R07.9 - Chest pain, unspecified Hypertension Qualifiers: Hypertension type: unspecified Qualified Code(s): I10 - Essential (primary) hypertension Condition: Good Disposition: HOME, SELF-CARE Instructions: Cough Suppressant & Expectorant Medications, Chest Pain of Unclear Cause ([facility]), Dyspnea, Nonspecific ([facility]) Additional Instructions: See your doctor in follow up. Rest. Take your medicine as directed. Please return here for any problems or any concerns. Prescriptions: Albuterol Sulfate [Albuterol Sulfate Hfa] 8.5 gm IH TID #1 [id number] Referrals: KYLE DICKEY MD [ACTIVE STAFF] - Follow up as needed SHIREEN MORROW MD [ACTIVE STAFF] - Follow up as needed
--- NOTE | 2018-12-17 16:16 | EKG REPORT ---
SEVERITY:- ABNORMAL ECG - SINUS RHYTHM LEFT ANTERIOR FASCICULAR BLOCK BORDERLINE T ABNORMALITIES, ANTERIOR LEADS : Confirmed by: Krupa George MD 17-Dec-2018 16:16:00
[2018-12-17 16:37] VITALS: BP 116/70
== END 2018-12-17 16:43 | disposition home or self-care (01) ==
LOC: ER 11:05
DX: R07.9 Chest pain, unspecified (principal); R05 Cough; R06.2 Wheezing; R42 Dizziness and giddiness; I10 Essential (primary) hypertension; E78.00 Pure hypercholesterolemia, unspecified
CPT/HCPCS: 36415; 85025; 85610; 85730; 80053; 84484; 71046; 93005; 93010; J2920; J7620

== ENCOUNTER 2018-12-26 17:11 | Emergency (ER) | payer SELFPAY ==
[2018-12-26] MEDS ORDERED: ONDANSETRON 4 MG TAB.RAPDIS PO ONE (18:08)
--- NOTE | 2018-12-26 18:11 | ER Document Report ---
ED Medical Screen (RME) - General Chief Complaint: Nausea Stated Complaint: NAUSEA,HEADACHE,CHILLS Time Seen by Provider: 12/26/18 18:05 Primary Care Provider: YENIFER JOHNS MD [Primary Care Provider] - Follow up as needed TRAVEL OUTSIDE OF THE [place] IN LAST 30 DAYS: No - HPI Notes: 12/26/18 18:10 58-year-old female to the emergency department with complaints of cough, nausea, headache, generalized weakness that has been going on for the past week. Last week she was seen for shortness of breath and cough and placed on albuterol inhaler. However she has not been doing well. She states that this morning with the shortness of breath and the weakness she took a aspirin. She denies any chest pain vomiting or diaphoresis. Performed a brief medical screening exam on patient and determined that she will need further evaluation and management by me inside provider. Have ordered initial labs and imaging to aid in her care today. - Related Data Allergies/Adverse Reactions: No Known Allergies Allergy (Verified 12/26/18 18:06) Past Medical History - Past Medical History Cardiac Medical History: Reports: Hx Hypercholesterolemia, Hx Hypertension Pulmonary Medical History: Denies: Hx Tuberculosis Endocrine Medical History: Reports: Hx Diabetes Mellitus Type 2 Renal/ Medical History: Denies: Hx Peritoneal Dialysis Past Surgical History: Denies: Hx Pacemaker - Immunizations Hx Diphtheria, Pertussis, Tetanus Vaccination: Yes Physical Exam - Vital signs Vitals: Temp Pulse Resp BP Pulse Ox 98.0 F 81 20 136/78 H 97 12/26/18 17:30 12/26/18 17:30 12/26/18 17:30 12/26/18 17:30 12/26/18 17:30 Course - Vital Signs Vital signs: Temp Pulse Resp BP Pulse Ox 98.0 F 81 20 136/78 H 97 12/26/18 17:30 12/26/18 17:30 12/26/18 17:30 12/26/18 17:30 12/26/18 17:30 Doctor's Discharge - Discharge Referrals: YENIFER JOHNS MD [Primary Care Provider] - Follow up as needed
[2018-12-26 18:39] LABS: ABSOLUTE EOSINOPHILS # (AUTO) 0.1 10^3/uL (0.0-0.6); ABSOLUTE LYMPHOCYTES (AUTO) 2.1 10^3/uL (0.5-4.7); ABSOLUTE MONOCYTES (AUTO) 0.7 10^3/uL (0.1-1.4); ABSOLUTE NEUT (AUTO) 5.8 10^3/uL (1.7-8.2); BASOPHILS % (AUTO) 0.4 % (0-2); EOSINOPHILS % (AUTO) 1.1 % (0-6); HEMOGLOBIN 13.7 g/dL (12.0-15.5); LYMPHOCYTES % (AUTO) 24.1 % (13-45); MEAN CORPUSCULAR HEMOGLOBIN 28.6 pg (27.0-33.4); MEAN CORPUSCULAR HGB CONC 33.4 g/dL (32.0-36.0); MEAN CORPUSCULAR VOLUME 86 fl (80-97); MONOCYTES % (AUTO) 7.8 % (3-13); PLATELET COUNT 251 10^3/uL (150-450); RED BLOOD COUNT 4.79 10^6/uL (3.72-5.28); RED CELL DISTRIBUTION WIDTH 13.2 % (11.5-14.0); SEGMENTED NEUTROPHILS % (AUTO) 66.6 % (42-78); TOTAL CELLS COUNTED % (AUTO) 100 %; WHITE BLOOD COUNT 8.7 10^3/uL (4.0-10.5)
[2018-12-26 18:48] LABS: INTERNATIONAL RATION (INR) 0.92; PROTHROMBIN TIME 12.4 SEC (11.4-15.4)
[2018-12-26 18:49] LABS: PARTIAL THROMBOPLASTIN TIME 33.5 SEC (23.5-35.8)
[2018-12-26 18:59] LABS: ALBUMIN 4.9 g/dL (3.5-5.0); ALKALINE PHOSPHATASE 96 U/L (38-126); ANION GAP 11 (5-19); ASPARTATE AMINO TRANSFERASE 28 U/L (14-36); BILIRUBIN,DIRECT 0.1 mg/dL (0.0-0.4); BILIRUBIN,TOTAL 0.5 mg/dL (0.2-1.3); BLOOD UREA NITROGEN 24 mg/dL (7-20); CALCIUM 9.9 mg/dL (8.4-10.2); CARBON DIOXIDE 30 mmol/L (22-30); CHLORIDE 100 mmol/L (98-107); GLUCOSE 106 mg/dL (75-110); POTASSIUM 4.2 mmol/L (3.6-5.0); TOTAL PROTEIN 8.4 g/dL (6.3-8.2)
--- NOTE | 2018-12-26 19:19 | RADIOLOGY REPORT (SQ) ---
EXAM DESCRIPTION: CHEST 2 VIEWS COMPLETED DATE/TIME: 12/26/2018 6:34 pm REASON FOR STUDY: SOB, fatigue COMPARISON: 12/17/2018 EXAM PARAMETERS: NUMBER OF VIEWS: two views TECHNIQUE: Digital Frontal and Lateral radiographic views of the chest acquired. RADIATION DOSE: NA LIMITATIONS: none FINDINGS: LUNGS AND PLEURA: No opacities, masses or pneumothorax. No pleural effusion. MEDIASTINUM AND HILAR STRUCTURES: No masses or contour abnormalities. HEART AND VASCULAR STRUCTURES: Heart normal size. No evidence for failure. BONES: No acute findings. HARDWARE: None in the chest. OTHER: No other significant finding. IMPRESSION: NO ACUTE RADIOGRAPHIC FINDING IN THE CHEST. TECHNICAL DOCUMENTATION: JOB ID: [id number] [employer]- All Rights Reserved Reading location - IP/workstation name: [email or web address]
[2018-12-26 21:58] LABS: APPEARANCE,URINE SLIGHTLY-CLOUDY; BILIRUBIN,URINE NEGATIVE (NEGATIVE); COLOR,URINE YELLOW; GLUCOSE, URINE NEGATIVE (NEGATIVE); KETONES,URINE NEGATIVE (NEGATIVE); LEUKOCYTE ESTERASE,URINE MODERATE (NEGATIVE); NITRITE,URINE NEGATIVE (NEGATIVE); PROTEIN,URINE NEGATIVE (NEGATIVE); URINE SPECIFIC GRAVITY 1.009; UROBILINOGEN,URINE NEGATIVE mg/dL (<2.0)
[2018-12-26] MEDS ORDERED: IBUPROFEN 800 MG TABLET PO ONE (22:28)
[2018-12-26] MEDS ORDERED: KETOROLAC TROMETHAMINE 60 MG/2 ML SDV IM ONE (22:30)
--- NOTE | 2018-12-26 22:34 | ER Document Report ---
ED General - General Chief Complaint: Nausea/Vomiting Stated Complaint: NAUSEA,HEADACHE,CHILLS Time Seen by Provider: 12/26/18 18:05 Primary Care Provider: YENIFER JOHNS MD [Primary Care Provider] - Follow up as needed Notes: Ms. Giraldo is a 58 yo F w/ PMH hypertension and hyperlipidemia presenting to the ED for multiple complaints. Patient states she has a cough is productive of white sputum. She endorses nausea without any episodes of vomiting. She states that she also has a headache and generalized malaise. She also endorses bilateral flank pain. She states that the symptoms have all been ongoing for the past week. She denies any fevers or chills. She does endorse some mild shortness of breath without any chest pain. Patient states that she did not know how to appropriately take the inhaler not feel that has been helping her. Patient felt weak this morning so she took an aspirin. She denies any vomiting, diarrhea, increased urinary frequency or dysuria. TRAVEL OUTSIDE OF THE [place] IN LAST 30 DAYS: No - Related Data Allergies/Adverse Reactions: No Known Allergies Allergy (Verified 12/26/18 18:06) Past Medical History - Social History Smoking Status: Never Smoker Chew tobacco use (# tins/day): No Frequency of alcohol use: None Drug Abuse: None Family History: Reviewed & Not Pertinent, CAD Patient has suicidal ideation: No Patient has homicidal ideation: No - Past Medical History Cardiac Medical History: Reports: Hx Hypercholesterolemia, Hx Hypertension Pulmonary Medical History: Denies: Hx Tuberculosis Endocrine Medical History: Reports: Hx Diabetes Mellitus Type 2 Renal/ Medical History: Denies: Hx Peritoneal Dialysis Past Surgical History: Denies: Hx Pacemaker - Immunizations Hx Diphtheria, Pertussis, Tetanus Vaccination: Yes Review of Systems - Review of Systems Constitutional: See HPI EENT: No symptoms reported Cardiovascular: No symptoms reported Respiratory: See HPI Gastrointestinal: See HPI Genitourinary: No symptoms reported Female Genitourinary: No symptoms reported Musculoskeletal: No symptoms reported Skin: No symptoms reported Hematologic/Lymphatic: No symptoms reported Neurological/Psychological: No symptoms reported Physical Exam - Vital signs Vitals: Temp Pulse Resp BP Pulse Ox 98.0 F 81 20 136/78 H 97 12/26/18 17:30 12/26/18 17:30 12/26/18 17:30 12/26/18 17:30 12/26/18 17:30 Interpretation: Normal - General General appearance: Appears well, Alert - HEENT Head: Normocephalic, Atraumatic Eyes: Normal Pupils: PERRL - Respiratory Respiratory status: No respiratory distress. No: Respiratory distress, Tachypnea Chest status: Nontender Breath sounds: Normal, Nonproductive cough. No: Decreased air movement, Rales, Rhonchi, Wheezing Chest palpation: Normal - Cardiovascular Rhythm: Regular Heart sounds: Normal auscultation Murmur: No - Abdominal Inspection: Normal Distension: No distension Bowel sounds: Normal Tenderness: Nontender Organomegaly: No organomegaly - Back Back: Normal, Nontender. No: Tender, CVA tenderness - Extremities General upper extremity: Normal inspection, Nontender, Normal color, Normal ROM, Normal temperature General lower extremity: Normal inspection, Nontender, Normal color, Normal ROM, Normal temperature, Normal weight bearing. No: Joni's sign - Neurological Neuro grossly intact: Yes Cognition: Normal Orientation: AAOx4 [place] Coma Scale Eye Opening: Spontaneous [place] Coma Scale Verbal: Oriented [place] Coma Scale Motor: Obeys Commands [place] Coma Scale Total: 15 Speech: Normal Motor strength normal: LUE, RUE, LLE, RLE Sensory: Normal - Psychological Associated symptoms: Normal affect, Normal mood - Skin Skin Temperature: Warm Skin Moisture: Dry Skin Color: Normal Course - Re-evaluation Re-evalutation: Patient is generally well-appearing and nontoxic. Initial vitals within normal limits. Differential diagnosis includes URI, pneumonia, dehydration, electrol yte abnormality, sepsis (unlikely), UTI 12/26/18 22:16 Patient's CBC and initial troponin are all unremarkable. UA was not obtained and is ordered. No repeat troponin is indicated as the patient did not endorse any chest pain. However CMP does show increased BUN and creatinine ratio consistent with mild dehydration. Patient taking p.o. without any issues. UA negative for evidence of infection. There is a small amount of blood in it however the patient did not have CVA tenderness bilaterally or significant pain to suggest kidney stone. No evidence of UTI. Chest x-ray was within normal l imits. I also explained to the patient how to appropriately use her albuterol inhaler in Greek. She did not realize that she needed to fully exhale before attempting to take the inhaler during the inhalation phase. Patient given Toradol for pain control. Recommended follow-up with her primary care doctor as needed and given return precautions. Patient recommended to drink plenty of fluids to stay well-hydrated. - Vital Signs Vital signs: Temp Pulse Resp BP Pulse Ox 97.7 F 81 15 131/73 H 99 12/26/18 23:04 12/26/18 23:04 12/26/18 23:04 12/26/18 23:04 12/26/18 23:04 - Laboratory Result Diagrams: 12/26/18 18:20 12/26/18 18:20 Laboratory results interpreted by me: 12/26/18 12/26/18 18:20 21:40 BUN 24 H Est GFR (MDRD) Non-Af 55 L Total Protein 8.4 H Urine Blood MODERATE H Ur Leukocyte Esterase MODERATE H - EKG Interpretation by Me EKG shows normal: Sinus rhythm, QRS Complexes, ST-T Waves Rate: Normal Rhythm: NSR, Other - Inverted Twaves in III, aVF, V1-V3 Howe/QRS: LAHB/LAFB Discharge - Discharge Clinical Impression: Hematuria, URI (upper respiratory infection), Dehydration Condition: Good Disposition: HOME, SELF-CARE Instructions: Dehydration ([facility]), Upper Respiratory Illness ([facility]), Viral Syndrome ([facility]) Additional Instructions: It is important that you drink plenty of fluids and stay well-hydrated. Your labs do show evidence of dehydration. I recommend that you drink at least eight 8 ounce glasses of water daily. You can use the albuterol inhaler 1 to 2 puffs every 4-6 hours as needed for shortness of breath. Referrals: YENIFER JOHNS MD [Primary Care Provider] - Follow up as needed Print Language: Greek
[2018-12-26] MEDS ORDERED: IBUPROFEN 800 MG TABLET ONE (22:37)
[2018-12-26 23:06] VITALS: BP 131/73
--- NOTE | 2018-12-26 23:51 | EKG REPORT ---
SEVERITY:- ABNORMAL ECG - SINUS RHYTHM LEFT ANTERIOR FASCICULAR BLOCK CONSIDER ANTERIOR INFARCT NONSPECIFIC T ABNORMALITIES, INFERIOR LEADS : Confirmed by: Karl Frost MD 26-Dec-2018 23:50:36
== END 2018-12-26 23:05 | disposition home or self-care (01) ==
LOC: ER 17:11
DX: J06.9 Acute upper respiratory infection, unspecified (principal); R31.9 Hematuria, unspecified; E86.0 Dehydration; R05 Cough; R11.0 Nausea; R51 Headache; R53.81 Other malaise; R10.9 Unspecified abdominal pain; R06.02 Shortness of breath; I44.4 Left anterior fascicular block; E11.9 Type 2 diabetes mellitus without complications; I10 Essential (primary) hypertension
CPT/HCPCS: 93005; 36415; 85025; 85610; 85730; 80053; 81001; 84484; 71046; 93010; J1885; S0119; 96372; 99284